=== PATIENT | male | born 1990 | race Caucasian/White ===

== ENCOUNTER 2020-02-22 21:26 | Emergency (ER) | payer MEDICAID, OTHER ==
[~2020-02-22] VITALS: Ht 177.8 cm; Wt 81.8 kg
--- NOTE | 2020-02-22 22:10 | NUR ---
PT REPORTS SHARP BURNING DISCOMFORT TO HIS LEFT EYE. STAES THAT IT IS MORE PAINFUL WHEN THE EYE IS OPEN . HAS SOME VISUAL DISTURBANCE
[2020-02-22] MEDS ORDERED: proparacaine 0.5% ophthalmic drops 15ml LEFTEYE ONE ×2 (22:35→22:45)
[2020-02-22] MEDS ORDERED: CIPR2.5D18 LEFTEYE (22:56)
[2020-02-22 23:15] VITALS: BP 115/81
== END 2020-02-22 23:15 | disposition home or self-care (01) ==
LOC: ER 21:27
DX: S05.02XA Injury of conjunctiva and corneal abrasion without foreign body, left eye, initial encounter (principal); Z79.899 Other long term (current) drug therapy; X58.XXXA Exposure to other specified factors, initial encounter; Y93.89 Activity, other specified; Y92.89 Other specified places as the place of occurrence of the external cause; Y99.8 Other external cause status
CPT/HCPCS: 99283

== ENCOUNTER 2022-05-30 20:02 | Emergency (ER) | payer MEDICAID, OTHER ==
[~2022-05-30] VITALS: Ht 177.8 cm; Wt 81.8 kg
[2022-05-31] MEDS ORDERED: proparacaine 0.5% ophthalmic drops 15ml EACHEYE ONE (00:35)
[2022-05-31] MEDS ORDERED: fluorescein sod 1mg ophthalmic strip EACHEYE ONE (00:35)
[2022-05-31 08:45] VITALS: BP 122/81
== END 2022-05-31 08:00 | disposition home or self-care (01) ==
LOC: ER 20:03
DX: H57.04 Mydriasis (principal)
CPT/HCPCS: 70450; 70486; 99284